=== PATIENT | male | born 1975 | race Caucasian/White ===

== ENCOUNTER 2019-09-13 00:16 | Emergency (ER) | payer BC ==
[2019-09-13] MEDS ORDERED: TETANUS & DIPHTHERIA TOX,ADULT 0.5 ML VIAL ONE (00:56)
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
[2019-09-13 02:05] VITALS: BP 155/107; TEMP 98.7; O2SAT 98
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
== END 2019-09-13 01:53 | disposition home or self-care (01) ==
LOC: ER 00:16
DX: S79.922A Unspecified injury of left thigh, initial encounter (principal); V49.9XXA Car occupant (driver) (passenger) injured in unspecified traffic accident, initial encounter; Z23 Encounter for immunization
CPT/HCPCS: 90471; 90714; 99283